=== PATIENT | male | born 1960 | race American Indian/Alaskan Native ===

== ENCOUNTER 2019-02-05 19:35 | Emergency (ER) | payer OTHER ==
--- NOTE | 2019-02-05 19:43 | Emergency Department Report ---
Blank Doc - Documentation Documentation: This is a 58-year-old male that presents with urinary retention. Stated that he is voiding but has to put strain. This initial assessment/diagnostic orders/clinical plan/treatment(s) is/are subject to change based on patient's health status, clinical progression and re-assessment by fellow clinical providers in the ED. Further treatment and workup at subsequent clinical providers discretion. Patient/guardians urged not to elope from the ED as their condition may be serious if not clinically assessed and managed. Initial orders include: 1- Patient sent to [facility] for further evaluation and treatment 2- labs 3- UA
[2019-02-05 21:03] LABS: Basophils % (Auto) 0.7 % (0.0-1.8); Eosinophils # (Auto) 0.5 K/mm3 (0.0-0.4); Eosinophils % (Auto) 7.7 % (0.0-4.3); Hemoglobin 15.7 gm/dl (11.8-15.2); Lymphocytes # (Auto) 2.9 K/mm3 (1.2-5.4); Lymphocytes % (Auto) 45.7 % (13.4-35.0); Mean Corpuscular HGB Conc 34 % (32-34); Mean Corpuscular Volume 98 fl (84-94); Monocytes # (Auto) 0.5 K/mm3 (0.0-0.8); Monocytes % (Auto) 8.6 % (0.0-7.3); Platelet Count 204 K/mm3 (140-440); Red Blood Count 4.71 M/mm3 (3.65-5.03); Red Cell Distribution Width 13.3 % (13.2-15.2)
[2019-02-05 21:14] LABS: BUN/Creatinine Ratio 18; Blood Urea Nitrogen 16 mg/dL (9-20); Calcium 9.6 mg/dL (8.4-10.2); Hemolysis Index 12
[2019-02-05 22:50] LABS: Bilirubin,Urine NEG (Negative); Blood,Urine SM (Negative); Mucus,Urine 3+ /HPF
[2019-02-05 22:52] LABS: Color,Urine Yellow (Yellow)
--- NOTE | 2019-02-05 23:07 | Emergency Department Report ---
ED Male HPI - General Chief complaint: Urogenital-Male Stated complaint: PAIN IN URINATION Time Seen by Provider: 02/05/19 19:41 Source: patient Mode of arrival: Ambulatory Limitations: No Limitations - History of Present Illness Initial comments: 58 Y/O -[place] male presents to the emergency room for urinary retention for 4 days. Patient denies any abd pain no fever. No PMH. MD Complaint: other -: days(s) (4) Radiation: none Worsens with: urination denies other symptoms - Related Data Previous Rx's Medication Instructions Recorded Last Taken Type Ciprofloxacin HCl [Cipro] 500 mg PO QDAY #5 tablet 02/06/19 Unknown Rx Allergies Allergy/AdvReac Type Severity Reaction Status Date / Time No Known Allergies Allergy Unverified 02/05/19 19:37 ED Review of Systems ROS: Stated complaint: PAIN IN URINATION Other details as noted in HPI Comment: All other systems reviewed and negative ED Past Medical Hx - Past Medical History Previous Medical History?: No - Surgical History Past Surgical History?: Yes Additional Surgical History: Fusion L4, L5, S1 - Social History Smoking Status: Current Every Day Smoker Substance Use Type: Alcohol, Marijuana - Medications Home Medications: Home Medications Medication Instructions Recorded Confirmed Last Taken Type Ciprofloxacin HCl [Cipro] 500 mg PO QDAY #5 tablet 02/06/19 Unknown Rx ED Physical Exam - General Limitations: No Limitations General appearance: alert, in no apparent distress - Head Head exam: Present: atraumatic, normocephalic - Eye Eye exam: Present: normal appearance - ENT ENT exam: Present: mucous membranes moist - Cardiovascular Cardiovascular Exam: Present: tachycardia ED Course Vital Signs 02/05/19 19:43 Temperature 99 F Pulse Rate 101 H Respiratory 18 Rate Blood Pressure 159/96 O2 Sat by Pulse 97 Oximetry ED Medical Decision Making - Lab Data Result diagrams: 02/05/19 20:22 02/05/19 20:22 Critical care attestation.: If time is entered above; I have spent that time in minutes in the direct care of this critically ill patient, excluding procedure time. ED Disposition Clinical Impression: Acute urinary retention UTI (urinary tract infection) Qualifiers: Urinary tract infection type: site unspecified Hematuria presence: without hem aturia Qualified Code(s): N39.0 - Urinary tract infection, site not specified Disposition: DC-01 TO HOME OR SELFCARE Is pt being admited?: No Does the pt Need Aspirin: No Condition: Stable Instructions: Urinary Retention in Men (ED) Additional Instructions: Please complete her antibiotics as prescribed. Increase clear fluid intake. It is very important for you to follow up with a urologist I have listed several below for your convenience. They are the ones were able to take out the Urena. Prescriptions: Ciprofloxacin HCl [Cipro] 500 mg PO QDAY #5 tablet Referrals: DANICA RAMIRES MD [Staff Physician] - 3-5 Days IVON PIERRE MD [Staff Physician] - 3-5 Days Forms: Work/School Release Form(ED)
[2019-02-06 02:31] VITALS: BP 147/101
== END 2019-02-06 03:00 | disposition home or self-care (01) ==
LOC: ED 19:35
DX: R33.9 Retention of urine, unspecified (principal); N39.0 Urinary tract infection, site not specified; F17.200 Nicotine dependence, unspecified, uncomplicated; F12.10 Cannabis abuse, uncomplicated
CPT/HCPCS: 36415; 51702; 80048; 81001; 84153; 85025

== ENCOUNTER 2019-06-17 16:42 | Emergency (ER) | payer OTHER ==
--- NOTE | 2019-06-17 17:24 | Emergency Department Report ---
HPI <LIZ CHAPIN - Last Filed: 06/18/19 05:41> - HPI HPI: Room 14 The patient is a 59-year-old male presenting with chief complaint of bizarre behavior. EMS reports patient has a history of crack cocaine use. Patient was today in his yard naked picking at the foot of a baby in front of teenage girls. When asked how his feel the patient states he feels fine. Patient is not suicidal or homicidal ideation. Patient denies auditory or visual hallucinations. The patient is fidgety and appears unfocused Location: Mental state Duration: [See above] Quality: [See above] Severity: [See above] Timing: [See above] Context: [See above] Modifying factors: [See above] Associated signs and symptoms: [see above] <CHACHA RANGEL - Last Filed: 06/18/19 23:42> <ANNETTA MONTEMAYOR - Last Filed: 06/19/19 16:37> - General Chief Complaint: Psych Time Seen by Provider: 06/17/19 16:52 ED Past Medical Hx <LIZ CHAPIN - Last Filed: 06/18/19 05:41> - Surgical History Additional Surgical History: Fusion L4, L5, S1 - Social History Smoking Status: Current Every Day Smoker Substance Use Type: Alcohol (occasional), Cocaine (per EMS) <CHACHA RANGEL - Last Filed: 06/18/19 23:42> <ANNETTA MONTEMAYOR - Last Filed: 06/19/19 16:37> - Medications Home Medications: Home Medications Medication Instructions Recorded Confirmed Last Taken Type Unobtainable 06/17/19 06/17/19 Unknown History ED Review of Systems ROS: Stated complaint: MH EVAL Other details as noted in HPI <LIZ CHAPIN - Last Filed: 06/18/19 05:41> ROS: Stated complaint: MH EVAL Other details as noted in HPI Constitutional: no symptoms reported Eyes: denies: eye pain ENT: denies: throat pain Respiratory: no symptoms reported Cardiovascular: denies: chest pain Endocrine: no symptoms reported Gastrointestinal: denies: abdominal pain Genitourinary: denies: dysuria Musculoskeletal: denies: back pain Neurological: denies: headache Psychiatric: denies: auditory hallucinations, visual hallucinations, homicidal thoughts, suicidal thoughts <CHACHA RANGEL - Last Filed: 06/18/19 23:42> ROS: Stated complaint: MH EVAL Other details as noted in HPI <ANNETTA MONTEMAYOR - Last Filed: 06/19/19 16:37> Physical Exam - Physical Exam Vital Signs: Vital Signs 06/17/19 06/17/19 06/17/19 16:45 16:53 19:58 Temperature 98.2 F 98 F 98.0 F Pulse Rate 136 H 136 H 96 H Respiratory 20 20 20 Rate Blood Pressure 177/110 Blood Pressure 177/110 177/110 135/90 [Right] O2 Sat by Pulse 97 97 96 Oximetry 06/18/19 01:52 Temperature 98.1 F Pulse Rate 72 Respiratory 18 Rate Blood Pressure Blood Pressure 141/68 [Right] O2 Sat by Pulse 99 Oximetry <LIZ CHAPIN - Last Filed: 06/18/19 05:41> - Physical Exam Vital Signs: Vital Signs 06/17/19 16:53 Temperature 98 F Pulse Rate 136 H Respiratory 20 Rate Blood Pressure 177/110 Blood Pressure 177/110 [Right] O2 Sat by Pulse 97 Oximetry Physical Exam: GENERAL: The patient is well-developed well-nourished male sitting on chair fi dgeting/picking at his gown but not appearing to be in acute distress. [] HEENT: Normocephalic. Atraumatic. Extraocular motions are intact. Patient has moist mucous membranes. NECK: Supple. Trachea midline. Open sore to the back of the neck approximately 1 cm in diameter CHEST/LUNGS: Clear to auscultation. There is no respiratory distress noted. HEART/CARDIOVASCULAR: Regular. There is tachycardia. There is no gallop rub or murmur. ABDOMEN: Abdomen is soft, nontender. Patient has normal bowel sounds. There is no abdominal distention. SKIN: There is a 1 cm abrasion/open sore to the midepigastric region. There is another 1 cm abrasion/open sore to the nape of the neck. There is no edema. There is no diaphoresis. NEURO: The patient is awake and alert. The patient is cooperative. The patient has no focal neurologic deficits. The patient has normal speech MUSCULOSKELETAL:There is no evidence of acute injury. <CHACHA RANGEL - Last Filed: 06/18/19 23:42> - Physical Exam Vital Signs: Vital Signs 06/17/19 06/17/19 06/17/19 16:45 16:53 19:58 Temperature 98.2 F 98 F 98.0 F Pulse Rate 136 H 136 H 96 H Respiratory 20 20 20 Rate Blood Pressure 177/110 Blood Pressure 177/110 177/110 135/90 [Right] O2 Sat by Pulse 97 97 96 Oximetry 06/18/19 06/18/19 06/18/19 01:52 08:55 15:00 Temperature 98.1 F 97.7 F 98.9 F Pulse Rate 72 81 82 Respiratory 18 18 Rate Blood Pressure Blood Pressure 141/68 138/91 143/91 [Right] O2 Sat by Pulse 99 98 Oximetry 06/18/19 06/19/19 06/19/19 20:13 02:26 07:00 Temperature 98.0 F 98.2 F 97.9 F Pulse Rate 20 L 66 62 Respiratory 18 20 18 Rate Blood Pressure Blood Pressure 143/97 155/57 151/92 [Right] O2 Sat by Pulse 100 100 98 Oximetry 06/19/19 13:00 Temperature 98.1 F Pulse Rate 71 Respiratory 20 Rate Blood Pressure Blood Pressure 150/93 [Right] O2 Sat by Pulse 99 Oximetry <ANNETTA MONTEMAYOR - Last Filed: 06/19/19 16:37> ED Course Vital Signs 06/17/19 06/17/19 06/17/19 16:45 16:53 19:58 Temperature 98.2 F 98 F 98.0 F Pulse Rate 136 H 136 H 96 H Respiratory 20 20 20 Rate Blood Pressure 177/110 Blood Pressure 177/110 177/110 135/90 [Right] O2 Sat by Pulse 97 97 96 Oximetry 06/18/19 01:52 Temperature 98.1 F Pulse Rate 72 Respiratory 18 Rate Blood Pressure Blood Pressure 141/68 [Right] O2 Sat by Pulse 99 Oximetry - Reevaluation(s) Reevaluation #1: 06/18/19 05:41 Creatinine kinase downtrending. Patient not in any acute distress. Vital signs improved. No events overnight. Psychiatric consultation pending. CK at this time does not preclude psychiatric evaluation. it will decrease on its own with rest and oral hydration. <LIZ CHAPIN - Last Filed: 06/18/19 05:41> Vital Signs 06/17/19 16:53 Temperature 98 F Pulse Rate 136 H Respiratory 20 Rate Blood Pressure 177/110 Blood Pressure 177/110 [Right] O2 Sat by Pulse 97 Oximetry <CHACHA RANGEL - Last Filed: 06/18/19 23:42> Vital Signs 06/17/19 06/17/19 06/17/19 16:45 16:53 19:58 Temperature 98.2 F 98 F 98.0 F Pulse Rate 136 H 136 H 96 H Respiratory 20 20 20 Rate Blood Pressure 177/110 Blood Pressure 177/110 177/110 135/90 [Right] O2 Sat by Pulse 97 97 96 Oximetry 06/18/19 06/18/19 06/18/19 01:52 08:55 15:00 Temperature 98.1 F 97.7 F 98.9 F Pulse Rate 72 81 82 Respiratory 18 18 Rate Blood Pressure Blood Pressure 141/68 138/91 143/91 [Right] O2 Sat by Pulse 99 98 Oximetry 06/18/19 06/19/19 06/19/19 20:13 02:26 07:00 Temperature 98.0 F 98.2 F 97.9 F Pulse Rate 20 L 66 62 Respiratory 18 20 18 Rate Blood Pressure Blood Pressure 143/97 155/57 151/92 [Right] O2 Sat by Pulse 100 100 98 Oximetry 06/19/19 13:00 Temperature 98.1 F Pulse Rate 71 Respiratory 20 Rate Blood Pressure Blood Pressure 150/93 [Right] O2 Sat by Pulse 99 Oximetry <ANNETTA MONTEMAYOR - Last Filed: 06/19/19 16:37> ED Medical Decision Making - Lab Data Result diagrams: 06/17/19 17:47 06/17/19 17:47 <LIZ CHAPIN - Last Filed: 06/18/19 05:41> - Lab Data Result diagrams: 06/17/19 17:47 06/17/19 17:47 Laboratory Tests 06/17/19 06/17/19 06/17/19 17:47 17:47 17:47 WBC 8.1 RBC 4.63 Hgb 15.3 H Hct 45.2 MCV 98 H MCH 33 H MCHC 34 RDW 13.9 Plt Count 286 Lymph % (Auto) 11.1 L [place] % (Auto) 5.3 Eos % (Auto) 0.6 Baso % (Auto) 0.5 Lymph # 0.9 L [place] # 0.4 Eos # 0.0 Baso # 0.0 Seg Neutrophils % 82.5 H Seg Neutrophils # 6.6 Sodium 144 Potassium 3.9 Chloride 103.0 Carbon Dioxide 21 L Anion Gap 24 BUN 12 Creatinine 1.1 Estimated GFR > 60 BUN/Creatinine Ratio 11 Glucose 102 H Calcium 9.8 Total Bilirubin 0.90 AST 64 H ALT 50 Alkaline Phosphatase 84 Total Creatine Kinase 1321 H CK-MB (CK-2) 15.0 H CK-MB (CK-2) Rel Index 1.1 Troponin T < 0.010 Total Protein 8.5 H Albumin 4.8 Albumin/Globulin Ratio 1.3 TSH 0.832 Free T4 1.45 Salicylates Acetaminophen Plasma/Serum Alcohol 06/17/19 06/17/19 06/17/19 17:47 17:53 17:53 WBC RBC Hgb Hct MCV MCH MCHC RDW Plt Count Lymph % (Auto) [place] % (Auto) Eos % (Auto) Baso % (Auto) Lymph # [place] # Eos # Baso # Seg Neutrophils % Seg Neutrophils # Sodium Potassium Chloride Carbon Dioxide Anion Gap BUN Creatinine Estimated GFR BUN/Creatinine Ratio Glucose Calcium Total Bilirubin AST ALT Alkaline Phosphatase Total Creatine Kinase CK-MB (CK-2) CK-MB (CK-2) Rel Index Troponin T Total Protein Albumin Albumin/Globulin Ratio TSH Free T4 Salicylates < 0.3 L Acetaminophen < 5.0 L Plasma/Serum Alcohol < 0.01 Lab Results 06/17/19 06/17/19 06/17/19 Range/Units 17:47 17:47 17:47 WBC 8.1 (4.5-11.0) K/mm3 RBC 4.63 (3.65-5.03) M/mm3 Hgb 15.3 H (11.8-15.2) gm/dl Hct 45.2 (35.5-45.6) % MCV 98 H (84-94) fl MCH 33 H (28-32) pg MCHC 34 (32-34) % RDW 13.9 (13.2-15.2) % Plt Count 286 (140-440) K/mm3 Lymph % (Auto) 11.1 L (13.4-35.0) % [place] % (Auto) 5.3 (0.0-7.3) % Eos % (Auto) 0.6 (0.0-4.3) % Baso % (Auto) 0.5 (0.0-1.8) % Lymph # 0.9 L (1.2-5.4) K/mm3 [place] # 0.4 (0.0-0.8) K/mm3 Eos # 0.0 (0.0-0.4) K/mm3 Baso # 0.0 (0.0-0.1) K/mm3 Seg Neutrophils % 82.5 H (40.0-70.0) % Seg Neutrophils # 6.6 (1.8-7.7) K/mm3 Sodium 144 (137-145) mmol/L Potassium 3.9 (3.6-5.0) mmol/L Chloride 103.0 (98-107) mmol/L Carbon Dioxide 21 L (22-30) mmol/L Anion Gap 24 mmol/L BUN 12 (9-20) mg/dL Creatinine 1.1 (0.8-1.5) mg/dL Estimated GFR > 60 ml/min BUN/Creatinine Ratio 11 % Glucose 102 H (75-100) mg/dL Calcium 9.8 (8.4-10.2) mg/dL Total Bilirubin 0.90 (0.1-1.2) mg/dL AST 64 H (5-40) units/L ALT 50 (7-56) units/L Alkaline Phosphatase 84 (35-129) units/L Total Creatine Kinase 1321 H (55-170) units/L CK-MB (CK-2) 15.0 H (0.0-4.0) ng/mL CK-MB (CK-2) Rel Index 1.1 (0-4) Troponin T < 0.010 (0.00-0.029) ng/mL Total Protein 8.5 H (6.3-8.2) g/dL Albumin 4.8 (3.9-5) g/dL Albumin/Globulin Ratio 1.3 % TSH 0.832 (0.270-4.200) mlU/mL Free T4 1.45 (0.76-1.46) ng/dL Urine Color (Yellow) Urine Turbidity (Clear) Urine pH (5.0-7.0) Ur Specific [place] (1.003-1.030) Urine Protein (Negative) mg/dL Urine Glucose (UA) (Negative) mg/dL Urine Ketones (Negative) mg/dL Urine Blood (Negative) Urine Nitrite (Negative) Urine Bilirubin (Negative) Urine Urobilinogen (<2.0) mg/dL Ur Leukocyte Esterase (Negative) Urine WBC (Auto) (0.0-6.0) /HPF Urine RBC (Auto) (0.0-6.0) /HPF U Epithel Cells (Auto) (0-13.0) /HPF Urine Bacteria (Auto) (Negative) /HPF Urine Mucus /HPF Salicylates (2.8-20.0) mg/dL Urine Opiates Screen Urine Methadone Screen Acetaminophen (10.0-30.0) ug/mL Ur Barbiturates Screen Ur Phencyclidine Scrn Ur Amphetamines Screen U Benzodiazepines Scrn Urine Cocaine Screen U Marijuana (THC) Screen Drugs of Abuse Note Plasma/Serum Alcohol (0-0.07) % 06/17/19 06/17/19 06/17/19 Range/Units 17:47 17:53 17:53 WBC (4.5-11.0) K/mm3 RBC (3.65-5.03) M/mm3 Hgb (11.8-15.2) gm/dl Hct (35.5-45.6) % MCV (84-94) fl MCH (28-32) pg MCHC (32-34) % RDW (13.2-15.2) % Plt Count (140-440) K/mm3 Lymph % (Auto) (13.4-35.0) % [place] % (Auto) (0.0-7.3) % Eos % (Auto) (0.0-4.3) % Baso % (Auto) (0.0-1.8) % Lymph # (1.2-5.4) K/mm3 [place] # (0.0-0.8) K/mm3 Eos # (0.0-0.4) K/mm3 Baso # (0.0-0.1) K/mm3 Seg Neutrophils % (40.0-70.0) % Seg Neutrophils # (1.8-7.7) K/mm3 Sodium (137-145) mmol/L Potassium (3.6-5.0) mmol/L Chloride (98-107) mmol/L Carbon Dioxide (22-30) mmol/L Anion Gap mmol/L BUN (9-20) mg/dL Creatinine (0.8-1.5) mg/dL Estimated GFR ml/min BUN/Creatinine Ratio % Glucose (75-100) mg/dL Calcium (8.4-10.2) mg/dL Total Bilirubin (0.1-1.2) mg/dL AST (5-40) units/L ALT (7-56) units/L Alkaline Phosphatase (35-129) units/L Total Creatine Kinase (55-170) units/L CK-MB (CK-2) (0.0-4.0) ng/mL CK-MB (CK-2) Rel Index (0-4) Troponin T (0.00-0.029) ng/mL Total Protein (6.3-8.2) g/dL Albumin (3.9-5) g/dL Albumin/Globulin Ratio % TSH (0.270-4.200) mlU/mL Free T4 (0.76-1.46) ng/dL Urine Color (Yellow) Urine Turbidity (Clear) Urine pH (5.0-7.0) Ur Specific [place] (1.003-1.030) Urine Protein (Negative) mg/dL Urine Glucose (UA) (Negative) mg/dL Urine Ketones (Negative) mg/dL Urine Blood (Negative) Urine Nitrite (Negative) Urine Bilirubin (Negative) Urine Urobilinogen (<2.0) mg/dL Ur Leukocyte Esterase (Negative) Urine WBC (Auto) (0.0-6.0) /HPF Urine RBC (Auto) (0.0-6.0) /HPF U Epithel Cells (Auto) (0-13.0) /HPF Urine Bacteria (Auto) (Negative) /HPF Urine Mucus /HPF Salicylates < 0.3 L (2.8-20.0) mg/dL Urine Opiates Screen Urine Methadone Screen Acetaminophen < 5.0 L (10.0-30.0) ug/mL Ur Barbiturates Screen Ur Phencyclidine Scrn Ur Amphetamines Screen U Benzodiazepines Scrn Urine Cocaine Screen U Marijuana (THC) Screen Drugs of Abuse Note Plasma/Serum Alcohol < 0.01 (0-0.07) % 06/17/19 06/18/19 06/18/19 Range/Units 22:31 02:37 07:40 WBC (4.5-11.0) K/mm3 RBC (3.65-5.03) M/mm3 Hgb (11.8-15.2) gm/dl Hct (35.5-45.6) % MCV (84-94) fl MCH (28-32) pg MCHC (32-34) % RDW (13.2-15.2) % Plt Count (140-440) K/mm3 Lymph % (Auto) (13.4-35.0) % [place] % (Auto) (0.0-7.3) % Eos % (Auto) (0.0-4.3) % Baso % (Auto) (0.0-1.8) % Lymph # (1.2-5.4) K/mm3 [place] # (0.0-0.8) K/mm3 Eos # (0.0-0.4) K/mm3 Baso # (0.0-0.1) K/mm3 Seg Neutrophils % (40.0-70.0) % Seg Neutrophils # (1.8-7.7) K/mm3 Sodium (137-145) mmol/L Potassium (3.6-5.0) mmol/L Chloride (98-107) mmol/L Carbon Dioxide (22-30) mmol/L Anion Gap mmol/L BUN (9-20) mg/dL Creatinine (0.8-1.5) mg/dL Estimated GFR ml/min BUN/Creatinine Ratio % Glucose (75-100) mg/dL Calcium (8.4-10.2) mg/dL Total Bilirubin (0.1-1.2) mg/dL AST (5-40) units/L ALT (7-56) units/L Alkaline Phosphatase (35-129) units/L Total Creatine Kinase 1138 H 1182 H (55-170) units/L CK-MB (CK-2) (0.0-4.0) ng/mL CK-MB (CK-2) Rel Index (0-4) Troponin T (0.00-0.029) ng/mL Total Protein (6.3-8.2) g/dL Albumin (3.9-5) g/dL Albumin/Globulin Ratio % TSH (0.270-4.200) mlU/mL Free T4 (0.76-1.46) ng/dL Urine Color [place] (Yellow) Urine Turbidity Slightly-cloudy (Clear) Urine pH 5.0 (5.0-7.0) Ur Specific [place] 1.023 (1.003-1.030) Urine Protein <15 mg/dl (Negative) mg/dL Urine Glucose (UA) Neg (Negative) mg/dL Urine Ketones Neg (Negative) mg/dL Urine Blood Neg (Negative) Urine Nitrite Neg (Negative) Urine Bilirubin Neg (Negative) Urine Urobilinogen 4.0 (<2.0) mg/dL Ur Leukocyte Esterase Neg (Negative) Urine WBC (Auto) 2.0 (0.0-6.0) /HPF Urine RBC (Auto) 5.0 (0.0-6.0) /HPF U Epithel Cells (Auto) < 1.0 (0-13.0) /HPF Urine Bacteria (Auto) 1+ (Negative) /HPF Urine Mucus 1+ /HPF Salicylates (2.8-20.0) mg/dL Urine Opiates Screen Urine Methadone Screen Acetaminophen (10.0-30.0) ug/mL Ur Barbiturates Screen Ur Phencyclidine Scrn Ur Amphetamines Screen U Benzodiazepines Scrn Urine Cocaine Screen U Marijuana (THC) Screen Drugs of Abuse Note Plasma/Serum Alcohol (0-0.07) % 06/18/19 06/18/19 Range/Units 07:40 13:07 WBC (4.5-11.0) K/mm3 RBC (3.65-5.03) M/mm3 Hgb (11.8-15.2) gm/dl Hct (35.5-45.6) % MCV (84-94) fl MCH (28-32) pg MCHC (32-34) % RDW (13.2-15.2) % Plt Count (140-440) K/mm3 Lymph % (Auto) (13.4-35.0) % [place] % (Auto) (0.0-7.3) % Eos % (Auto) (0.0-4.3) % Baso % (Auto) (0.0-1.8) % Lymph # (1.2-5.4) K/mm3 [place] # (0.0-0.8) K/mm3 Eos # (0.0-0.4) K/mm3 Baso # (0.0-0.1) K/mm3 Seg Neutrophils % (40.0-70.0) % Seg Neutrophils # (1.8-7.7) K/mm3 Sodium (137-145) mmol/L Potassium (3.6-5.0) mmol/L Chloride (98-107) mmol/L Carbon Dioxide (22-30) mmol/L Anion Gap mmol/L BUN (9-20) mg/dL Creatinine (0.8-1.5) mg/dL Estimated GFR ml/min BUN/Creatinine Ratio % Glucose (75-100) mg/dL Calcium (8.4-10.2) mg/dL Total Bilirubin (0.1-1.2) mg/dL AST (5-40) units/L ALT (7-56) units/L Alkaline Phosphatase (35-129) units/L Total Creatine Kinase 921 H (55-170) units/L CK-MB (CK-2) (0.0-4.0) ng/mL CK-MB (CK-2) Rel Index (0-4) Troponin T (0.00-0.029) ng/mL Total Protein (6.3-8.2) g/dL Albumin (3.9-5) g/dL Albumin/Globulin Ratio % TSH (0.270-4.200) mlU/mL Free T4 (0.76-1.46) ng/dL Urine Color (Yellow) Urine Turbidity (Clear) Urine pH (5.0-7.0) Ur Specific [place] (1.003-1.030) Urine Protein (Negative) mg/dL Urine Glucose (UA) (Negative) mg/dL Urine Ketones (Negative) mg/dL Urine Blood (Negative) Urine Nitrite (Negative) Urine Bilirubin (Negative) Urine Urobilinogen (<2.0) mg/dL Ur Leukocyte Esterase (Negative) Urine WBC (Auto) (0.0-6.0) /HPF Urine RBC (Auto) (0.0-6.0) /HPF U Epithel Cells (Auto) (0-13.0) /HPF Urine Bacteria (Auto) (Negative) /HPF Urine Mucus /HPF Salicylates (2.8-20.0) mg/dL Urine Opiates Screen Presumptive negative Urine Methadone Screen Presumptive negative Acetaminophen (10.0-30.0) ug/mL Ur Barbiturates Screen Presumptive negative Ur Phencyclidine Scrn Presumptive negative Ur Amphetamines Screen Presumptive positive U Benzodiazepines Scrn Presumptive negative Urine Cocaine Screen Presumptive negative U Marijuana (THC) Screen Presumptive negative Drugs of Abuse Note Disclamer Plasma/Serum Alcohol (0-0.07) % <CHACHA RANGEL - Last Filed: 06/18/19 23:42> - Lab Data Result diagrams: 06/17/19 17:47 06/17/19 17:47 - Medical Decision Making Patient is a 59-year-old gentleman who presented 3 days ago for bizarre behavior. Patient is now calm cooperative alert and oriented. Patient stated to our psychiatry team that he had been using drugs and that he needs to get help. Patient is given outpatient resources for drug addiction. Patient's of drug induced psychosis appears to have resolved. Patient be discharged home at this time. <ANNETTA MONTEMAYOR - Last Filed: 06/19/19 16:37> Critical care attestation.: If time is entered above; I have spent that time in minutes in the direct care of this critically ill patient, excluding procedure time. <LIZ CHAPIN - Last Filed: 06/18/19 05:41> Critical care attestation.: If time is entered above; I have spent that time in minutes in the direct care of this critically ill patient, excluding procedure time. <CHACHA RANGEL - Last Filed: 06/18/19 23:42> Critical care attestation.: If time is entered above; I have spent that time in minutes in the direct care of this critically ill patient, excluding procedure time. <ANNETTA MONTEMAYOR - Last Filed: 06/19/19 16:37> ED Disposition Is pt being admited?: No Does the pt Need Aspirin: No <LIZ CHAPIN - Last Filed: 06/18/19 05:41> Is pt being admited?: No Does the pt Need Aspirin: No <CHACHA RANGEL - Last Filed: 06/18/19 23:42> Is pt being admited?: No Does the pt Need Aspirin: No Time of Disposition: 16:37 <ANNETTA MONTEMAYOR - Last Filed: 06/19/19 16:37> Clinical Impression: Drug-induced psychotic disorder Disposition: DC-01 TO HOME OR SELFCARE Condition: Fair Instructions: Polysubstance Abuse (ED) Referrals: PRIMARY CARE, [Primary Care Provider] - 3-5 Days
[2019-06-17] MEDS ORDERED: ATIVAN IV ONE (17:26)
[2019-06-17] MEDS ORDERED: NACL 0.9% 1000 ML 1,000 ML IV ONE ×3 (17:26→23:55)
[2019-06-17 18:01] LABS: Basophils % (Auto) 0.5 % (0.0-1.8); Eosinophils % (Auto) 0.6 % (0.0-4.3); Hematocrit 45.2 % (35.5-45.6); Hemoglobin 15.3 gm/dl (11.8-15.2); Lymphocytes # (Auto) 0.9 K/mm3 (1.2-5.4); Lymphocytes % (Auto) 11.1 % (13.4-35.0); Mean Corpuscular HGB Conc 34 % (32-34); Mean Corpuscular Volume 98 fl (84-94); Monocytes # (Auto) 0.4 K/mm3 (0.0-0.8); Monocytes % (Auto) 5.3 % (0.0-7.3); Platelet Count 286 K/mm3 (140-440); Red Blood Count 4.63 M/mm3 (3.65-5.03); Red Cell Distribution Width 13.9 % (13.2-15.2)
[2019-06-17 18:27] LABS: Alanine Aminotransferase 50 units/L (7-56); Albumin 4.8 g/dL (3.9-5); BUN/Creatinine Ratio 11; Blood Urea Nitrogen 12 mg/dL (9-20); Calcium 9.8 mg/dL (8.4-10.2); Hemolysis Index 30
[2019-06-17 18:34] LABS: Free T4 (Free Thyroxine) 1.45 ng/dL (0.76-1.46)
[2019-06-17] MEDS ORDERED: NACL 0.9% 1000 ML 2,000 ML IV ONE (23:55)
[2019-06-18 07:57] LABS: Bacteria,Urine 1+ /HPF (Negative); Bilirubin,Urine NEG (Negative); Blood,Urine NEG (Negative); Color,Urine Amber (Yellow); Mucus,Urine 1+ /HPF; Protein,Urine <15 mg/dL mg/dL (Negative)
[2019-06-18 08:03] LABS: Benzodiazepines Screen,Urine PRESUMPTIVE NEGATIVE; Cannabinoid Screen,Urine PRESUMPTIVE NEGATIVE; Cocaine Screen,Urine PRESUMPTIVE NEGATIVE; Methadone Screen,Urine PRESUMPTIVE NEGATIVE; Opiate Screen,Urine PRESUMPTIVE NEGATIVE
[2019-06-18 08:15] LABS: Amphetamine Screen,Urine PRESUMPTIVE POSITIVE
--- NOTE | 2019-06-18 12:41 | Consultation ---
History of Present Illness - Reason for Consult Consult date: 06/18/19 Reason for consult: Mental Health Evaluation Requesting physician: CHACHA RANGEL - Chief Complaint Chief complaint: "I like my meth" - History of Present Psychiatric Illness 59 y.o. AA male who presented to the ER for bizarre behavior. Today the patient was calm during the assessment. He stated that he do not remember much about wh at happened yesterday other than the police bringing him to the ER. He is aware that he smoke "meth." He stated that he "get high" once or twice a year and his do not like it. He stated he can "control" his drug use. He denies SI/HI's and AVH's. He denies erratic sleep and a poor appetite. He denies alcohol consumption (etoh). Medications and Allergies Allergies Allergy/AdvReac Type Severity Reaction Status Date / Time No Known Allergies Allergy Unverified 02/05/19 19:37 Home Medications Medication Instructions Recorded Confirmed Last Taken Type Unobtainable 06/17/19 06/17/19 Unknown History Past psychiatric history - Past Medical History Past Medical History: No medical history Past Surgical History: No surgical history - past Psychiatric treatment and history psychiatric treatment history: Hx of substance abuse. Denies a fam psy hx. - Social History Social history: lives with family Mental Status Exam - Vital signs Last Vital Signs Temp 97.7 F 06/18/19 08:55 Pulse 81 06/18/19 08:55 Resp 18 06/18/19 01:52 BP 138/91 06/18/19 08:55 Pulse Ox 99 06/18/19 01:52 - Exam Narrative exam: MSE: Appearance: calm Behavior: regular eye contact Speech: regular rate and tone Mood: "okay" Affect: congruent to mood Thought Process: circumstantial Thought Content: denies SI/HI's and AVH's Motor Activity: ambulatory Cognition: A/O x 3 Insight: variable Judgment: variable Results Result Diagrams: 06/17/19 17:47 06/17/19 17:47 Abnormal lab results 06/17/19 06/17/19 06/17/19 Range/Units 17:47 17:47 17:53 Hgb 15.3 H (11.8-15.2) gm/dl MCV 98 H (84-94) fl MCH 33 H (28-32) pg Lymph % (Auto) 11.1 L (13.4-35.0) % Lymph # 0.9 L (1.2-5.4) K/mm3 Seg Neutrophils % 82.5 H (40.0-70.0) % Carbon Dioxide 21 L (22-30) mmol/L Glucose 102 H (75-100) mg/dL AST 64 H (5-40) units/L Total Creatine Kinase 1321 H (55-170) units/L CK-MB (CK-2) 15.0 H (0.0-4.0) ng/mL Total Protein 8.5 H (6.3-8.2) g/dL Salicylates < 0.3 L (2.8-20.0) mg/dL Acetaminophen (10.0-30.0) ug/mL 06/17/19 06/17/19 06/18/19 Range/Units 17:53 22:31 02:37 Hgb (11.8-15.2) gm/dl MCV (84-94) fl MCH (28-32) pg Lymph % (Auto) (13.4-35.0) % Lymph # (1.2-5.4) K/mm3 Seg Neutrophils % (40.0-70.0) % Carbon Dioxide (22-30) mmol/L Glucose (75-100) mg/dL AST (5-40) units/L Total Creatine Kinase 1138 H 1182 H (55-170) units/L CK-MB (CK-2) (0.0-4.0) ng/mL Total Protein (6.3-8.2) g/dL Salicylates (2.8-20.0) mg/dL Acetaminophen < 5.0 L (10.0-30.0) ug/mL All other labs normal. Assessment and Plan Assessment and plan: Impression: Substance Use DO. MDD, recurrent. Today the patient was calm during the assessment. DDx: Substance Induced Psychosis Recommendation/Plan: Reevaluate the patient's 1013 in 24 hours and gather collateral information. Dispo: If the patient's 1013 is rescinded in 24 hours, he can follow up with [facility] for outpatient psy services. Will staff with Dr. Raeann Solano.
--- NOTE | 2019-06-19 13:31 | Progress Note ---
Subjective - Reason for Consult Consult date: 06/19/19 Reason for consult: Psychiatry Follow-up - Chief Complaint Chief complaint: "I am okay now" 59 y.o. AA male who presented to the ER for bizarre behavior. Today the patient was calm and cooperative during the assessment. He stated that he plan to stay away from "drugs." He stated that he have to make better decisions with his life. He stated that he will follow up with [facility] for outpatient rehab services when discharged. He denies SI/HI's and AVH's. No behavioral disturbances overnight by the patient. Mental Status Exam - Vital signs Last Vital Signs Temp 97.9 F 06/19/19 07:00 Pulse 62 06/19/19 07:00 Resp 18 06/19/19 07:00 BP 151/92 06/19/19 07:00 Pulse Ox 98 06/19/19 07:00 - Exam Narrative exam: MSE: Appearance: calm, cooperative Behavior: regular eye contact Speech: regular rate and tone Mood: "okay" Affect: congruent to mood Thought Process: logical Thought Content: denies SI/HI's and AVH's Motor Activity: ambulatory Cognition: A/O x 3 Insight: fair Judgment: fair Assessment and Plan Impression: Substance Use DO. No overt psychosis with the patient. Today the patient was calm and cooperative during the assessment. DDx: Substance Induced Psychosis Recommendation/Plan: Rescind 1013. Discussed the importance to abstain from recreational drug use with the patient, he verbalized understanding. Dispo: The patient can follow up with [facility] for outpatient rehab services. Staffed with Dr. Raeann Solano.
[2019-06-19 14:17] VITALS: BP 150/93
== END 2019-06-19 18:17 | disposition home or self-care (01) ==
LOC: ED 16:42 → EEVIPCON 16:42 → ED 06-19 18:17
DX: F32.9 Major depressive disorder, single episode, unspecified (principal); F19.959 Other psychoactive substance use, unspecified with psychoactive substance-induced psychotic disorder, unspecified; F14.10 Cocaine abuse, uncomplicated; F17.200 Nicotine dependence, unspecified, uncomplicated
CPT/HCPCS: 36415; 80053; 80307; 81001; 82550; 82553; 84439; 84443; 84484; 85025; 93005; 93010; 96374; 99284; J2060; J7030; 80320; G0480

== ENCOUNTER 2019-09-28 14:49 | Emergency (ER) | payer OTHER | END 2019-09-28 16:00 | disposition left against medical advice (07) | LOC: ED 14:49 | DX: R42 Dizziness and giddiness (principal); Z53.21 Procedure and treatment not carried out due to patient leaving prior to being seen by health care provider ==